=== PATIENT | male | born 1990 | race Caucasian/White ===

== ENCOUNTER → 2023-02-02 | Outpatient (CLI) | payer BC ==
--- NOTE | 2023-02-02 12:26 | US ---
EXAMINATION TYPE: US abdomen complete DATE OF EXAM: 02/02/2023 COMPARISON: NONE CLINICAL INDICATION: Male, 32 years old with history of R10.13 EPIGASTRIC PAIN; Pain, nausea. Hx fatt y liver, diabetes. TECHNIQUE: Multiple sonographic images of the abdomen are obtained. FINDINGS: EXAM MEASUREMENTS: Liver Length: 19.8 cm Gallbladder Wall: 0.19 cm CBD: Obscured Spleen: 11.4 cm Right Kidney: 14.7 x 6.2 x 4.9 cm Left Kidney: 14.0 x 5.8 x 7.2 cm FINAL [employer]ER [employer] NOTES: Exam is limited due to patient body habitus and gas. Pancreas: Obscured Liver: Appears enlarged and very heterogeneous. Limited. Indistinct, hypoechoic area seen near the g allbladder: 3.5 x 2.4 x 1.1 cm. Gallbladder: Appears wnl Evidence for sonographic Chaudhari's sign: No CBD: Obscured Spleen: Appears wnl Right Kidney: Enlarged. No hydronephrosis or masses seen Left Kidney: Enlarged. No hydronephrosis or masses seen Upper IVC: Appears wnl Abd Aorta: Limited visibility. Iliacs were obscured. No aneurysmal change in the visualized abdominal aorta. IVC is seen near the hepatic dome. Suboptimal evaluation of pancreas on images saved due to overlying bowel gas. The visualized liver is heterogeneously hyperechoic. Evaluation for focal masses suboptimal due to th e heterogeneity. Hypoechoic areas near the periphery favor focal fatty sparing marked by technologist . No ascites. No mobile shadowing gallstones. Symmetric slightly enlarged kidneys without hydronephrosis seen bilaterally. Normal-sized spleen. IMPRESSION: Suboptimal study with suspected fatty infiltrative hepatocellular disease. No acute findi ngs evident.
--- NOTE | 2023-02-02 13:31 | FL ---
EXAMINATION TYPE: FL UGI DATE OF EXAM: 02/02/2023 COMPARISON: Ultrasound abdomen earlier today HISTORY: Epigastric pain with nausea and vomiting. TECHNIQUE: A double contrast UGI study is performed. A total of 42 seconds of fluoroscopic time was utilized during procedure and 50 images obtained. Total dose area product (DAP) in uGy*m?, mGy*cm? ( or similar): 3605.76. FINDINGS: Radiation Oncology Nurse image of the abdomen shows no gross abnormality. The esophagus shows satisfactory motility and emptying into the stomach. No proximal diverticulum. Sm all sliding hiatal hernia. No stricture noted. The stomach shows adequate distensibility, peristalsis, and mucosal folds. No evidence of any mass o r ulcer disease. Moderate to severe gastroesophageal reflux up to proximal one third of esophagus not ed during real-time performance of the study. The duodenal bulb, sweep, and proximal small bowel loops are unremarkable. IMPRESSION: Small sliding type hiatal hernia with moderate to severe gastroesophageal reflux. No foca l ulcer identified.
== END | disposition home or self-care (01) ==
LOC: RADUSWWP 11:28
PROVIDERS: ATTEND Family Medicine
DX: K21.9 Gastro-esophageal reflux disease without esophagitis (principal); K44.9 Diaphragmatic hernia without obstruction or gangrene; E11.9 Type 2 diabetes mellitus without complications; R10.13 Epigastric pain
CPT/HCPCS: 74240; 76700